=== PATIENT | female | born 1990 | race Caucasian/White ===

== ENCOUNTER 2021-07-30 12:55 | Inpatient (IN) | payer OTHER ==
[~2021-07-30] VITALS: Ht 165.1 cm; Wt 74.8 kg
[2021-07-30 13:18] VITALS: BP 110/76
[2021-07-30 13:43] LABS: HEMATOCRIT 38.5 % (37.0-47.0); MEAN CORPUSCULAR HGB 29.7 pg (27.0-31.0); MEAN PLATELET VOLUME 9.6 fl (9.6-12.3); PLATELET COUNT AUTOMATED 309 10*3/uL (130-400); RED BLOOD COUNT 4.28 10*6/uL (4.10-5.10); RED CELL DISTRI WIDTH 12.2 % (0-14.5); WHITE BLOOD COUNT 5.8 10*3/uL (4.8-10.8)
[2021-07-30 13:55] LABS: ALBUMIN 2.5 gm/dl (3.1-4.5); ALKALINE PHOSPHATASE 126 U/L (45-117); BUN 9 mg/dl (7-24); CHLORIDE 105 mmol/L (98-107); CREATININE 0.59 mg/dL (0.55-1.02); LIPASE 187 U/L (73-393); POTASSIUM 3.2 mmol/L (3.5-5.1); SGOT/AST 84 IU/L (3-35); SGPT/ALT 82 U/L (12-78); SODIUM 140 mmol/L (136-145); TOTAL PROTEIN 7.3 gm/dL (6.4-8.2)
[2021-07-30 13:57] LABS: ATYPICAL LYMPHS 3 % (0-0); PLATELET SUFFICIENCY NORMAL (NORMAL); TOTAL CELLS COUNTED 100 #CELLS
[2021-07-30 14:00] LABS: BETA-HCG, QUANT < 1.0 mIU/mL (1-3); TROPONIN I < 0.015 ng/ml (<0.045)
[2021-07-30 15:54] LABS: ABG BASE EXCESS 0.5 mmol/L (-2.0-2.0); ARTERIAL BLOOD GAS PH 7.47 (7.35-7.45); ARTERIAL BLOOD GAS PO2 92.2 (80-90)
[2021-07-30 16:00] VITALS: BP 119/79
[2021-07-30 20:00] VITALS: BP 108/70
[2021-07-30 21:50] VITALS: BP 119/79
[2021-07-31] VITALS: BP 121/82
[2021-07-31] MEDS ORDERED: CEFDINIR300 MG PO (01:13)
[2021-07-31 06:39] LABS: HEMATOCRIT 37.7 % (37.0-47.0); MEAN CELL VOLUME 91.1 fl (81.0-99.0); MEAN CORPUSCULAR HGB 29.2 pg (27.0-31.0); MEAN CORPUSCULAR HGB CONC 32.1 g/dl (33.0-37.0); MEAN PLATELET VOLUME 9.8 fl (9.6-12.3); PLATELET COUNT AUTOMATED 382 10*3/uL (130-400); RED BLOOD COUNT 4.14 10*6/uL (4.10-5.10); RED CELL DISTRI WIDTH 12.1 % (0-14.5); WHITE BLOOD COUNT 3.9 10*3/uL (4.8-10.8)
[2021-07-31 06:52] LABS: ALBUMIN 2.6 gm/dl (3.1-4.5); ALKALINE PHOSPHATASE 133 U/L (45-117); BUN 10 mg/dl (7-24); CHLORIDE 107 mmol/L (98-107); CHOLESTEROL 175 mg/dL (<200); CREATININE 0.42 mg/dL (0.55-1.02); LDH 241 U/L (84-246); LDL CHOLESTEROL 109 mg/dL (9-159); POTASSIUM 3.8 mmol/L (3.5-5.1); SGOT/AST 62 IU/L (3-35); SGPT/ALT 102 U/L (12-78); SODIUM 139 mmol/L (136-145); TOTAL PROTEIN 7.4 gm/dL (6.4-8.2); TRIGLYCERIDES 158 mg/dl (<150)
[2021-07-31 06:58] LABS: CPK 88 U/L (26-192); THYROID STIM HORMONE (HS) 0.438 uIU/ml (0.358-4.75)
[2021-07-31 07:16] LABS: ATYPICAL LYMPHS 2 % (0-0); TOTAL CELLS COUNTED 100 #CELLS
[2021-07-31 07:17] LABS: PLATELET SUFFICIENCY NORMAL (NORMAL)
[2021-07-31 07:33] LABS: VITAMIN D, 25-HYDROXY 38.4 ng/mL (30-100)
[2021-07-31 07:34] LABS: FERRITIN 270.7 ng/mL (10.0-291.0)
[2021-07-31 08:00] VITALS: BP 132/84
[2021-07-31 12:00] VITALS: BP 109/54
[2021-07-31 16:00] VITALS: BP 114/79
[2021-07-31 20:00] VITALS: BP 117/81
[2021-08-01] VITALS: BP 123/94
[2021-08-01 07:09] LABS: CHLORIDE 107 mmol/L (98-107); POTASSIUM 4.4 mmol/L (3.5-5.1); SODIUM 140 mmol/L (136-145)
[2021-08-01 07:13] LABS: HEMATOCRIT 39.1 % (37.0-47.0); MEAN CELL VOLUME 89.5 fl (81.0-99.0); MEAN CORPUSCULAR HGB 29.5 pg (27.0-31.0); MEAN PLATELET VOLUME 9.9 fl (9.6-12.3); PLATELET COUNT AUTOMATED 479 10*3/uL (130-400); RED BLOOD COUNT 4.37 10*6/uL (4.10-5.10); RED CELL DISTRI WIDTH 12.1 % (0-14.5); WHITE BLOOD COUNT 5.9 10*3/uL (4.8-10.8)
[2021-08-01 07:16] LABS: ALBUMIN 2.8 gm/dl (3.1-4.5); ALKALINE PHOSPHATASE 105 U/L (45-117); BUN 12 mg/dl (7-24); CREATININE 0.58 mg/dL (0.55-1.02); LDH 226 U/L (84-246); SGOT/AST 38 IU/L (3-35); SGPT/ALT 86 U/L (12-78); TOTAL PROTEIN 7.2 gm/dL (6.4-8.2)
[2021-08-01 07:36] LABS: CPK 45 U/L (26-192)
[2021-08-01 08:00] VITALS: BP 113/75
[2021-08-01 08:08] LABS: TOTAL CELLS COUNTED 100 #CELLS
[2021-08-01 08:09] LABS: PLATELET SUFFICIENCY NORMAL (NORMAL)
[2021-08-01 12:00] VITALS: BP 116/72
[2021-08-01 16:00] VITALS: BP 112/72
[2021-08-01 20:00] VITALS: BP 127/96
[2021-08-02] VITALS: BP 101/70
[2021-08-02 07:40] LABS: HEMATOCRIT 36.9 % (37.0-47.0); MEAN CELL VOLUME 90.7 fl (81.0-99.0); MEAN PLATELET VOLUME 9.7 fl (9.6-12.3); PLATELET COUNT AUTOMATED 445 10*3/uL (130-400); RED BLOOD COUNT 4.07 10*6/uL (4.10-5.10); RED CELL DISTRI WIDTH 12.1 % (0-14.5); WHITE BLOOD COUNT 6.4 10*3/uL (4.8-10.8)
[2021-08-02 08:00] VITALS: BP 110/62
[2021-08-02 08:10] LABS: ALBUMIN 2.6 gm/dl (3.1-4.5); BUN 12 mg/dl (7-24); CHLORIDE 109 mmol/L (98-107); POTASSIUM 3.9 mmol/L (3.5-5.1); SGOT/AST 36 IU/L (3-35); SGPT/ALT 88 U/L (12-78); SODIUM 143 mmol/L (136-145); TOTAL PROTEIN 6.5 gm/dL (6.4-8.2)
[2021-08-02 08:15] LABS: ALKALINE PHOSPHATASE 86 U/L (45-117); LDH 164 U/L (84-246)
[2021-08-02 08:21] LABS: CPK 25 U/L (26-192)
[2021-08-02 08:35] LABS: ATYPICAL LYMPHS 1 % (0-0); BASOPHILS 2 % (0-1); PLATELET SUFFICIENCY NORMAL (NORMAL); TOTAL CELLS COUNTED 100 #CELLS
[2021-08-02] MEDS ORDERED: DECADRON6 M1 PO (11:44)
[2021-08-02 12:00] VITALS: BP 98/85
== END 2021-08-02 12:55 | disposition home or self-care (01) | DRG 871 ==
LOC: ED 12:55 → EDHOLD 14:33 → 4E 14:33
PROVIDERS: Emergency Medicine; Registered Nurse; ADMIT Internal Medicine; ATTEND Internal Medicine
PROC: XW033E5 Introduction of Remdesivir Anti-infective into Peripheral Vein, Percutaneous Approach, New Technology Group 5 (ICD-10-PCS; principal; 2021-08-01)
DX: A41.9 Sepsis, unspecified organism (principal); U07.1 COVID-19; J12.82 Pneumonia due to coronavirus disease 2019; J96.01 Acute respiratory failure with hypoxia; E43 Unspecified severe protein-calorie malnutrition; E83.41 Hypermagnesemia; E83.59 Other disorders of calcium metabolism; E87.6 Hypokalemia; R00.1 Bradycardia, unspecified; Z68.28 Body mass index [BMI] 28.0-28.9, adult

== ENCOUNTER → 2022-10-28 | Outpatient (CLI) | payer OTHER ==
[~2022-10-28] MED LIST: CEFDINIR300 MG PO; DECADRON6 M1 PO
== END | disposition home or self-care (01) ==
LOC: ORTHO 01:51
PROVIDERS: ATTEND Orthopaedic Surgery
DX: S62.355D Nondisplaced fracture of shaft of fourth metacarpal bone, left hand, subsequent encounter for fracture with routine healing (principal); S62.354D Nondisplaced fracture of shaft of fourth metacarpal bone, right hand, subsequent encounter for fracture with routine healing; X58.XXXD Exposure to other specified factors, subsequent encounter